=== PATIENT | female | born 1960 | race African-American/Black ===

== ENCOUNTER → 2023-02-18 | Outpatient (REF) | payer OTHER ==
[~2023-02-18] MED LIST: AMLODIPINE BESY10 MG PO; DICYCLOMINE HCL20 MG PO; HYDROXYZINE HCL25 MG PO; IBUPROFEN200 MG PO; LISINOPRIL10 MG PO
== END ==
LOC: RAD 15:46
PROVIDERS: ATTEND Internal Medicine Gastroenterology
DX: K59.09 Other constipation (principal); R14.0 Abdominal distension (gaseous)
CPT/HCPCS: 74018